=== PATIENT | male | born 1950 | race Caucasian/White ===

== ENCOUNTER 2017-12-12 10:57 | Day surgery (SDC) | payer MEDICARE ==
[2017-12-12] VITALS (10 sets, daily range): BP systolic 126–147; BP diastolic 74–103
[~2017-12-12] VITALS: Ht 185.4 cm; Wt 96.0 kg
[~2017-12-12 10:57] MED LIST: Cefazolin 2GM/50ML dext iso,osmotic IVPB IV ONE; NO HOME MEDS; famotidine 20mg tablet PO ONE; ringers solution, lacted 1,000 ML IV SCH
[2017-12-12 13:06] LABS: BASOPHILS % (AUTO) 0.4 % (0-1); EOSINOPHILS # (AUTO) 0.1 X10'3 (0-0.9); EOSINOPHILS % (AUTO) 1.9 % (0-6); LYMPHOCYTES # (AUTO) 1.6 X10'3 (1.1-4.8); LYMPHOCYTES % (AUTO) 29.8 % (21-51); MEAN CORPUSCULAR HEMOGLOBIN 31.9 PG (27.0-31.0); MEAN CORPUSCULAR HGB CONC 34.2 % (33.0-36.5); MEAN CORPUSCULAR VOLUME 93.1 FL (78-98); MEAN PLATELET VOLUME 8.3 FL (7.4-10.4); MONOCYTES # (AUTO) 0.6 X10'3 (0-0.9); NEUTROPHILS % (AUTO) 56.9 % (42-75); PRE OP HEMATOCRIT 40.8 % (42.0-52.0); PRE OP HEMOGLOBIN 13.9 g/dL (14.0-17.9); PRE OP PLATELET COUNT 216 X10'3 (140-440); RED BLOOD COUNT 4.38 X10'6 (4.70-6.10); RED CELL DISTRIBUTION WIDTH 13.4 % (11.5-14.5)
[2017-12-12 13:20] LABS: ALBUMIN 3.6 G/DL (3.4-5.0); ALBUMIN/GLOBULIN RATIO 1.2 (1.1-1.5); ALKALINE PHOSPHATASE 57 IU/L (46-116); BLOOD UREA NITROGEN 10 MG/DL (7-18); BUN/CREATININE RATIO 12.2 (5.4-32.0); CALCIUM 8.6 MG/DL (8.5-10.1); CHLORIDE 106 MMOL/L (99-107); CREATININE 0.82 MG/DL (0.60-1.10); PRE OP ALT 27 U/L (30-65); PRE OP ANION GAP 6 (8-16); PRE OP AST 17 U/L (10-37); PRE OP BILIRUB, TOTAL 0.8 MG/DL (0.0-1.0); PRE OP GLUCOSE 99 MG/DL (70-104); PRE OP POTASSIUM 3.7 MMOL/L (3.4-5.1); PRE OP SODIUM 141 MMOL/L (135-145); TOTAL CARBON DIOXIDE 29.5 MMOL/L (24-32); TOTAL PROTEIN 6.7 G/DL (6.4-8.2); eGFR > 90 ML/MIN
[2017-12-12] MEDS ORDERED: ceFAZolin 1000mg inj ONE (13:36)
[2017-12-12] MEDS ORDERED: BUPIVAcaine/PF 2.5mg/ml (0.25%) 10ml vial ONE (13:36)
[2017-12-12] MEDS ORDERED: midazolam 2 mg/2 ml injection ONE (15:01)
[2017-12-12] MEDS ORDERED: fentaNYL /PF 50mcg/ml 5ml ampule ONE (15:01)
[2017-12-12] MEDS ORDERED: propofol inj 20 ML IV ONE (15:09)
[2017-12-12] MEDS ORDERED: rocuronium 10mg/ml inj IV ONE (15:09)
[2017-12-12] MEDS ORDERED: LIDOcaine 2% (20mg/ml) 5ml vial ONE (15:09)
[2017-12-12] MEDS ORDERED: dexamethasone sod phosphate 4mg/ml inj. ONE (15:10)
[2017-12-12] MEDS ORDERED: ringers solution, lacted 1,000 ML IV SCH (15:42)
[2017-12-12] MEDS ORDERED: proCHLORperazine 10 MG/2 ml inj IV PRN (15:45)
[2017-12-12] MEDS ORDERED: meperidine/PF 25mg/ml syringe IV PRN ×3 (15:45)
[2017-12-12] MEDS ORDERED: morphine 4 MG/ML inj SYRINge IV PRN ×2 (15:45)
[2017-12-12] MEDS ORDERED: ondansetron/PF 4mg/2ml inj IV PRN (15:45)
[2017-12-12] MEDS ORDERED: glycopyrrolate 0.2mg/ml inj ONE (16:21)
[2017-12-12] MEDS ORDERED: neostigmine methylsulfate 1 MG/ML 10ml vial ONE (16:21)
[2017-12-12] MEDS ORDERED: ondansetron/PF 4mg/2ml inj ONE (16:21)
== END 2017-12-12 17:10 | disposition home or self-care (01) ==
LOC: PAS 10:57
PROVIDERS: ATTEND Surgery
DX: K40.90 Unilateral inguinal hernia, without obstruction or gangrene, not specified as recurrent (principal); I49.1 Atrial premature depolarization; Z72.89 Other problems related to lifestyle; Z90.89 Acquired absence of other organs; Z80.8 Family history of malignant neoplasm of other organs or systems
CPT/HCPCS: 36415; 49650; 80053; 85025; 93005; A4315; A6258; C1781; J0690; J1100; J2001; J2250; J2405; J2704; J2710; J3010; J3490; J7120

== ENCOUNTER 2020-05-05 08:05 | Emergency (ER) | payer OTHER, MEDICARE ==
[~2020-05-05] VITALS: Ht 185.4 cm; Wt 93.9 kg
[~2020-05-05 08:05] MED LIST changes: -Cefazolin 2GM/50ML dext iso,osmotic IVPB IV ONE; -famotidine 20mg tablet PO ONE; -ringers solution, lacted 1,000 ML IV SCH
[2020-05-05 09:20] LABS: BASOPHILS % (AUTO) 0.6 % (0-1); EOSINOPHILS % (AUTO) 0.9 % (0-6); HEMATOCRIT 43.5 % (42.0-52.0); LYMPHOCYTES # (AUTO) 0.9 X10'3 (1.1-4.8); LYMPHOCYTES % (AUTO) 16.6 % (21-51); MEAN CORPUSCULAR HEMOGLOBIN 34.1 PG (27.0-31.0); MEAN CORPUSCULAR HGB CONC 34.4 g/dL (33.0-36.5); MEAN PLATELET VOLUME 8.3 FL (7.4-10.4); MONOCYTES # (AUTO) 0.6 X10'3 (0-0.9); MONOCYTES % (AUTO) 11.6 % (2-12); NEUTROPHILS # (AUTO) 3.6 X10'3 (1.8-7.7); NEUTROPHILS % (AUTO) 70.3 % (42-75); PLATELET COUNT 241 X10'3 (140-440); RED CELL DISTRIBUTION WIDTH 13.6 % (11.5-14.5); WHITE BLOOD COUNT 5.1 X10'3 (4.5-11.0)
[2020-05-05 09:30] LABS: ALANINE AMINOTRANSFERASE 31 U/L (12-78); ALBUMIN 4.2 G/DL (3.4-5.0); ALBUMIN/GLOBULIN RATIO 1.3 (1.1-1.5); ALKALINE PHOSPHATASE 77 IU/L (46-116); ANION GAP 7 (8-16); ASPARTATE AMINO TRANSFERASE 22 U/L (10-37); BILIRUBIN,TOTAL 0.5 MG/DL (0.1-1.0); BLOOD UREA NITROGEN 15 MG/DL (7-18); BUN/CREATININE RATIO 15.3 (5.4-32.0); CALCIUM 8.8 MG/DL (8.5-10.1); CHLORIDE 109 MMOL/L (99-107); CREATININE 0.98 MG/DL (0.60-1.10); GLUCOSE 91 MG/DL (70-104); POTASSIUM 4.7 MMOL/L (3.5-5.1); SODIUM 143 MMOL/L (135-145); TOTAL CARBON DIOXIDE 26.6 MMOL/L (24-32); TOTAL PROTEIN 7.5 G/DL (6.4-8.2); eGFR 76 ML/MIN
[2020-05-05] MEDS ORDERED: iohexol 300mg/ml 100ml inj. ONE (09:37)
--- NOTE | 2020-05-05 09:50 | NUR ---
PT TO CT.
--- NOTE | 2020-05-05 10:05 | NUR ---
PT REFUSES PAIN MEDICATION AT THIS TIME, WAITING FOR FLASH WELDER FOR SPLINT PLACEMENT.
[2020-05-05 10:37] VITALS: BP 166/96
== END 2020-05-05 10:43 | disposition home or self-care (01) ==
LOC: ER 08:06
DX: S52.511A Displaced fracture of right radial styloid process, initial encounter for closed fracture (principal); S62.14 Fracture of body of hamate [unciform] bone; M25.531 Pain in right wrist; R41.82 Altered mental status, unspecified; R10.32 Left lower quadrant pain; V87.7XXA Person injured in collision between other specified motor vehicles (traffic), initial encounter; Y93.89 Activity, other specified; Y92.89 Other specified places as the place of occurrence of the external cause; Y99.8 Other external cause status
CPT/HCPCS: 29125; 36415; 70450; 73110; 74177; 80053; 85025; 99285; Q9967

== ENCOUNTER 2020-05-08 07:58 | Emergency (ER) | payer OTHER, MEDICARE ==
[~2020-05-08] VITALS: Ht 185.4 cm; Wt 95.8 kg
[2020-05-08 08:02] VITALS: BP 175/93
== END 2020-05-08 09:21 | disposition home or self-care (01) ==
LOC: ER 07:58
DX: S20.211A Contusion of right front wall of thorax, initial encounter (principal); R07.81 Pleurodynia; V87.7XXA Person injured in collision between other specified motor vehicles (traffic), initial encounter; Y93.89 Activity, other specified; Y92.89 Other specified places as the place of occurrence of the external cause; Y99.8 Other external cause status
CPT/HCPCS: 71101; 99283

== ENCOUNTER 2021-06-15 10:51 | Outpatient (CLI) | payer MEDICARE ==
[2021-06-15 11:35] LABS: BASOPHILS % (AUTO) 0.7 % (0-1); EOSINOPHILS # (AUTO) 0.1 X10'3 (0-0.9); EOSINOPHILS % (AUTO) 1.9 % (0-6); HEMATOCRIT 41.8 % (42.0-52.0); HEMOGLOBIN 14.3 g/dl (14.0-17.9); LYMPHOCYTES # (AUTO) 1.3 X10'3 (1.1-4.8); MEAN CORPUSCULAR HEMOGLOBIN 32.7 PG (27.0-31.0); MEAN CORPUSCULAR HGB CONC 34.3 g/dL (33.0-36.5); MEAN CORPUSCULAR VOLUME 95.2 FL (78-98); MEAN PLATELET VOLUME 8.2 FL (7.4-10.4); MONOCYTES # (AUTO) 0.7 X10'3 (0-0.9); MONOCYTES % (AUTO) 10.9 % (2-12); NEUTROPHILS # (AUTO) 4.1 X10'3 (1.8-7.7); NEUTROPHILS % (AUTO) 65.5 % (42-75); PLATELET COUNT 241 X10'3 (140-440); RED BLOOD COUNT 4.39 X10'6 (4.70-6.10); RED CELL DISTRIBUTION WIDTH 13.2 % (11.5-14.5); WHITE BLOOD COUNT 6.2 X10'3 (4.5-11.0)
[2021-06-15 11:46] LABS: APTT 28 SECONDS (22-32)
[2021-06-15 11:51] LABS: ALANINE AMINOTRANSFERASE 29 U/L (12-78); ALBUMIN 3.7 G/DL (3.4-5.0); ALBUMIN/GLOBULIN RATIO 1.3 (1.1-1.5); ALKALINE PHOSPHATASE 79 IU/L (46-116); ANION GAP 11 (8-16); ASPARTATE AMINO TRANSFERASE 15 U/L (10-37); BILIRUBIN,TOTAL 0.3 MG/DL (0.1-1.0); BLOOD UREA NITROGEN 19 MG/DL (7-18); BUN/CREATININE RATIO 22.4 (5.4-32.0); CALCIUM 8.4 MG/DL (8.5-10.1); CHLORIDE 108 MMOL/L (99-107); CREATININE 0.85 MG/DL (0.60-1.10); GLUCOSE 103 MG/DL (70-104); POTASSIUM 4.1 MMOL/L (3.5-5.1); SODIUM 142 MMOL/L (135-145); TOTAL CARBON DIOXIDE 23.4 MMOL/L (24-32); TOTAL PROTEIN 6.6 G/DL (6.4-8.2); eGFR 89 ML/MIN
== END 2021-06-15 23:59 | disposition home or self-care (01) ==
LOC: LAB 10:51
PROVIDERS: ATTEND Specialist
DX: Z01.812 Encounter for preprocedural laboratory examination (principal); M17.12 Unilateral primary osteoarthritis, left knee; R79.1 Abnormal coagulation profile; I51.7 Cardiomegaly
CPT/HCPCS: 36415; 80053; 85025; 85610; 85730; 87081; 93005

== ENCOUNTER 2024-07-08 05:48 | Emergency (ER) | payer MEDICARE, OTHER ==
[~2024-07-08] VITALS: Ht 185.4 cm; Wt 100.0 kg
[2024-07-08] MEDS ORDERED: PRED20TA PO (06:21)
[2024-07-08] MEDS: dexamethasone sod phosphate 10mg/ml inj PO STA (06:48)
[2024-07-08 06:53] VITALS: BP 142/90; PULSE 65; RESP 16; TEMP 98.6; O2SAT 98
== END 2024-07-08 06:55 | disposition home or self-care (01) ==
LOC: ER 05:49
DX: T78.3XXA Angioneurotic edema, initial encounter (principal); Y92.89 Other specified places as the place of occurrence of the external cause
CPT/HCPCS: 99283; J1100

== ENCOUNTER 2024-07-15 03:27 | Observation (INO) | payer MEDICARE, OTHER ==
[~2024-07-15] VITALS: Ht 185.4 cm; Wt 96.8 kg
[~2024-07-15 03:27] MED LIST changes: +PRED20TA PO
[2024-07-15] MEDS: glycopyrrolate 0.2mg/ml inj IV ONE (04:26)
[2024-07-15] MEDS: dexamethasone sod phosphate 10mg/ml inj IV STA (04:26)
[2024-07-15 04:36] LABS: BASOPHILS % (AUTO) 0.5 % (0-1); EOSINOPHILS # (AUTO) 0.2 X10'3 (0-0.9); EOSINOPHILS % (AUTO) 2.7 % (0-6); HEMATOCRIT 45.6 % (42.0-52.0); HEMOGLOBIN 16.1 g/dl (14.0-17.9); LYMPHOCYTES # (AUTO) 1.3 X10'3 (1.1-4.8); LYMPHOCYTES % (AUTO) 19.4 % (21-51); MEAN CORPUSCULAR HEMOGLOBIN 34.6 PG (27.0-31.0); MEAN CORPUSCULAR HGB CONC 35.3 g/dL (33.0-36.5); MEAN CORPUSCULAR VOLUME 98.1 FL (78-98); MEAN PLATELET VOLUME 8.2 FL (7.4-10.4); MONOCYTES # (AUTO) 0.7 X10'3 (0-0.9); NEUTROPHILS # (AUTO) 4.5 X10'3 (1.8-7.7); NEUTROPHILS % (AUTO) 66.4 % (42-75); PLATELET COUNT 231 X10'3 (140-440); RED BLOOD COUNT 4.65 X10'6 (4.70-6.10); RED CELL DISTRIBUTION WIDTH 14.1 % (11.5-14.5); WHITE BLOOD COUNT 6.8 X10'3 (4.5-11.0)
[2024-07-15 04:47] LABS: ALANINE AMINOTRANSFERASE 31 U/L (12-78); ALBUMIN 3.2 G/DL (3.4-5.0); ALKALINE PHOSPHATASE 58 IU/L (46-116); ANION GAP 8 (8-16); ASPARTATE AMINO TRANSFERASE 15 U/L (10-37); BILIRUBIN,TOTAL 0.6 MG/DL (0.1-1.0); BLOOD UREA NITROGEN 17 MG/DL (7-18); CALCIUM 8.4 MG/DL (8.5-10.1); CHLORIDE 105 MMOL/L (99-107); CREATININE 0.68 MG/DL (0.60-1.10); GLUCOSE 116 MG/DL (70-104); POTASSIUM 3.8 MMOL/L (3.5-5.1); SODIUM 138 MMOL/L (135-145); TOTAL CARBON DIOXIDE 25.5 MMOL/L (24-32); TOTAL PROTEIN 6.5 G/DL (6.4-8.2); eCRCL 108 ML/MIN; eGFR > 90 ML/MIN
[2024-07-15] MEDS ORDERED: magnesium hydroxide 30ml (MOM) UD suspension PO PRN (05:50)
[2024-07-15] MEDS ORDERED: magnesium Cl slow-release 64mg tablet PO PRN (05:50)
[2024-07-15] MEDS ORDERED: ondansetron/PF 4mg/2ml inj IV PRN (05:50)
[2024-07-15] MEDS ORDERED: potassium Cl 40MEQ/1/2NS 520ml 520 ML IV PRN (05:50)
[2024-07-15] MEDS ORDERED: mag hydrox/Alum hydrox/simeth 30ml oral suspension PO PRN (05:50)
[2024-07-15] MEDS ORDERED: potassium Cl 20 mEq SR tablet PO PRN ×2 (05:50)
[2024-07-15] MEDS ORDERED: acetaminophen 325mg tablet PO PRN ×2 (05:50→17:20)
[2024-07-15] MEDS ORDERED: magnesium sulf-water 2g/50mL 50 ML IV PRN (05:50)
[2024-07-15] MEDS ORDERED: magnesium sulf-water 4G/100mL 100 ML IV PRN (05:50)
[2024-07-15 06:39] LABS: BILIRUBIN,URINE NEGATIVE (Neg); CLARITY,URINE CLEAR (Clear); COLOR,URINE YELLOW (Yellow); GLUCOSE, URINE NEGATIVE (Neg); KETONES,URINE NEGATIVE (Neg); LEUKOCYTE ESTERASE ,URINE NEGATIVE (Neg); NITRITES, URINE NEGATIVE (Neg); OCCULT BLOOD,URINE NEGATIVE (Neg); PROTEIN,URINE NEGATIVE (Neg); UROBILINOGEN,URINE 0.2 E.U/dL (0.2-1.0)
[2024-07-15 06:44] LABS: UA COLLECTION TYPE NON-SPECIFIED
[2024-07-15] MEDS ORDERED: dextrose 50%-water 50ml dispensing syringe IV PRN ×2 (06:55)
[2024-07-15] MEDS ORDERED: DEXTROSE 15 GM of carb/4 tabs (each vial/BOTTLE has 4 tablets) PO PRN ×2 (06:55)
[2024-07-15] MEDS ORDERED: glucagon, human recombinant 1mg kit SUBCUT PRN (06:55)
[2024-07-15] MEDS: INSULIN LISPRO 100 UNIT/ML INSULN.PEN MULTI-DOSE SQ SCH (07:00)
[2024-07-15] MEDS ORDERED: pantoprazole 40mg Tablet.DR PO SCH (07:30)
[2024-07-15] MEDS ORDERED: iohexol 300mg/ml 100ml inj. ONE (07:34)
[2024-07-15] MEDS: K and/or MAG REPLACEMENT MC SCH (08:00)
[2024-07-15 08:08] LABS: MAGNESIUM 1.8 MG/DL (1.5-2.4)
[2024-07-15] MEDS: predniSONE 20 mg tablet PO SCH (08:19)
[2024-07-15] MEDS: docusate sod 100mg capsule PO SCH (08:19)
[2024-07-15] MEDS: famotidine 20mg tablet PO SCH (08:19)
[2024-07-15] MEDS: loratadine 10mg tablet PO SCH (08:21)
[2024-07-15] MEDS: enoxaparin 40mg/0.4ml syringe SUBCUT SCH (08:21)
[2024-07-15] MEDS ORDERED: amLODIPine 5mg tablet PO SCH (10:55)
[2024-07-15] MEDS: amLODIPine 5mg tablet PO SCH (11:36)
[2024-07-15] MEDS ORDERED: diphenhydrAMINE 25 MG/10 ML UD oral solution PO PRN (14:15)
[2024-07-15 15:23] VITALS: BP 140/100; PULSE 94; RESP 20; TEMP 97.9; O2SAT 95
[2024-07-15 16:18] VITALS: RESP 16
[2024-07-15 18:00] VITALS: BP 161/92; PULSE 78; RESP 18; TEMP 97.9; O2SAT 92
[2024-07-15 18:11] VITALS: RESP 16
[2024-07-15 20:00] VITALS: RESP 16; O2SAT 96
[2024-07-15] MEDS: HYDROcodone/acetaminophen 5mg/325mg tablet PO PRN (21:58)
[2024-07-15 22:00] VITALS: BP 156/94; PULSE 79; RESP 18; TEMP 97.6; O2SAT 95
[2024-07-16 05:09] LABS: BASOPHILS % (AUTO) 0.3 % (0-1); EOSINOPHILS # (AUTO) 0.1 X10'3 (0-0.9); EOSINOPHILS % (AUTO) 0.5 % (0-6); HEMATOCRIT 45.2 % (42.0-52.0); HEMOGLOBIN 14.9 g/dl (14.0-17.9); LYMPHOCYTES # (AUTO) 1.5 X10'3 (1.1-4.8); LYMPHOCYTES % (AUTO) 12.6 % (21-51); MEAN CORPUSCULAR HEMOGLOBIN 31.4 PG (27.0-31.0); MEAN CORPUSCULAR HGB CONC 33.1 g/dL (33.0-36.5); MEAN CORPUSCULAR VOLUME 95.1 FL (78-98); MEAN PLATELET VOLUME 8.1 FL (7.4-10.4); MONOCYTES # (AUTO) 1.2 X10'3 (0-0.9); MONOCYTES % (AUTO) 10.1 % (2-12); NEUTROPHILS # (AUTO) 9.3 X10'3 (1.8-7.7); NEUTROPHILS % (AUTO) 76.5 % (42-75); PLATELET COUNT 237 X10'3 (140-440); RED BLOOD COUNT 4.75 X10'6 (4.70-6.10); RED CELL DISTRIBUTION WIDTH 14.1 % (11.5-14.5); WHITE BLOOD COUNT 12.1 X10'3 (4.5-11.0)
[2024-07-16 05:29] LABS: ALANINE AMINOTRANSFERASE 27 U/L (12-78); ALBUMIN 3.1 G/DL (3.4-5.0); ALKALINE PHOSPHATASE 52 IU/L (46-116); ANION GAP 4 (8-16); ASPARTATE AMINO TRANSFERASE 6 U/L (10-37); BILIRUBIN,TOTAL 0.5 MG/DL (0.1-1.0); BLOOD UREA NITROGEN 12 MG/DL (7-18); BUN/CREATININE RATIO 21.1 (10.0-20.0); CALCIUM 8.7 MG/DL (8.5-10.1); CHLORIDE 107 MMOL/L (99-107); CHOL/HDL RATIO 3.2 (0.00-4.99); CHOLESTEROL 231 MG/DL (0-200); CREATININE 0.57 MG/DL (0.60-1.10); GLUCOSE 114 MG/DL (70-104); HDL CHOLESTEROL 73 MG/DL (35-60); LDL CHOLESTEROL 141 MG/DL (50-100); POTASSIUM 4.1 MMOL/L (3.5-5.1); SODIUM 142 MMOL/L (135-145); TOTAL CARBON DIOXIDE 31.1 MMOL/L (24-32); TOTAL PROTEIN 6.1 G/DL (6.4-8.2); TRIGLYCERIDES 71 MG/DL (20-135); eCRCL 128 ML/MIN; eGFR > 90 ML/MIN
[2024-07-16 06:00] VITALS: BP 152/93; PULSE 69; RESP 16; TEMP 98.6; O2SAT 94
[2024-07-16 08:00] VITALS: RESP 18; O2SAT 96
[2024-07-16 10:00] VITALS: BP 138/78; PULSE 90; RESP 16; TEMP 98; O2SAT 94
[2024-07-16] MEDS ORDERED: NOR5T PO (13:01)
[2024-07-16] MEDS ORDERED: FAMO20TA8 PO ×3 (13:01→18:19)
[2024-07-16] MEDS ORDERED: PRED20TA PO (13:01)
[2024-07-16] MEDS ORDERED: BEN12.5L PO (13:01)
[2024-07-16] MEDS ORDERED: AMLO5TAB16 PO ×2 (15:25→18:19)
[2024-07-16] MEDS ORDERED: DIPH-423 PO (15:30)
[2024-07-16] MEDS ORDERED: PRED10TA PO (18:19)
[2024-07-16] MEDS ORDERED: PANT40TA54 PO (18:27)
[2024-07-16] MEDS ORDERED: CALC-723 PO (18:27)
[2024-07-17] MEDS ORDERED: DIPH-735 PO (07:51)
[2024-07-17] MEDS ORDERED: PRED10TA PO (07:51)
[2024-07-18 08:01] LABS: COMPLEMENT C4, SERUM 22 mg/dL (12-38)
== END 2024-07-16 14:10 | disposition home or self-care (01) ==
LOC: ER 03:29 → SUR 3N 05:56 → UNDOADMOB 05:56 → ED HOLD 05:56
PROVIDERS: ADMIT Internal Medicine Sleep Medicine; ATTEND Family Medicine
DX: T78.3XXA Angioneurotic edema, initial encounter (principal); I10 Essential (primary) hypertension; R22.1 Localized swelling, mass and lump, neck; Z79.899 Other long term (current) drug therapy; Y92.89 Other specified places as the place of occurrence of the external cause
CPT/HCPCS: 36415; 70486; 70491; 80053; 80061; 81003; 82948; 83036; 83735; 84132; 84145; 85025; 85651; 86160; 86161; 86332; 86885; 86900; 86901; 87081; 93005; 96372; 96374; 96375; 99291; G0378; J1100; J1650; J1815; J3490; J7512; Q9967